=== PATIENT | female | born 1995 | race Caucasian/White ===

== ENCOUNTER 2020-06-20 16:42 | Emergency (ER) | payer OTHER ==
[~2020-06-20 16:42] MED LIST: MACROBID100 MG PO; SUDAFED30 MG PO; TESSALON PERLE100 M1 PO; ZYRTEC10 M3 PO
[2020-06-20 18:00] LABS: BILIRUBIN NEGATIVE (NEGATIVE); BLOOD TRACE-INTACT Ery/uL (NEGATIVE); CLARITY CLEAR (CLEAR); COLOR YELLOW (YELLOW); GLUCOSE (U) NORMAL (NORMAL); LEUKOCYTES NEGATIVE Leu/uL (NEGATIVE); NITRITE NEGATIVE (NEGATIVE); PROTEIN 1+ mg/dL (NEGATIVE); UROBILINOGEN 0.2 mg/dL (0.2-1.0); pH 6.5 (5.0-9.0)
[2020-06-20 18:10] LABS: URINARY RBC RARE
[2020-06-20 18:11] LABS: BACTERIA 1+
[2020-06-20 18:11] LABS: BASOPHIL 0.5 % (0-2); EOSINOPHIL 1.1 % (0-5); HCT 33.2 % (37.0-47.0); HGB 9.9 g/dl (12.5-16.0); MCH 22.4 pg (25.0-31.0); MCHC 29.8 g/dL (32.0-36.0); MCV 75.3 fL (78.0-100.0); MONOCYTE 6.9 % (0-12); MPV 8.5 fL (6.0-9.5); NEUTROPHIL 71.2 % (41-80); NRBC 0; PLT 392 K/uL (150-400); RBC 4.41 M/uL (4.20-5.40); RDW 15.7 % (11.5-14.0); WBC 9.9 K/uL (4.0-10.5)
[2020-06-20 18:32] LABS: BUN/CREAT RATIO (CALC) 24.3 RATIO; CREATININE 0.74 mg/dL (0.51-0.95); POTASSIUM 3.8 mmol/L (3.5-5.1)
[2020-06-23 21:09] LABS: CHLAMYDIA TRACHOMATIS, NAA Negative (Negative); NEISSERIA GONORRHOEAE, NAA Negative (Negative)
== END 2020-06-20 19:42 | disposition home or self-care (01) ==
LOC: FER 16:42
PROVIDERS: Nurse Practitioner Family
DX: O03.9 Complete or unspecified spontaneous abortion without complication (principal); I10 Essential (primary) hypertension
CPT/HCPCS: 36415; 80048; 81001; 84702; 85025; 87210; 87491; 87591; 99284

== ENCOUNTER 2021-09-13 10:49 | Emergency (ER) | payer OTHER ==
[2021-09-13 12:28] LABS: CORONAVIRUS 2019 SARS-COV-2 NEGATIVE (NEGATIVE); INFLUENZA A NAA NEGATIVE (NEGATIVE)
[2021-09-13] MEDS ORDERED: AMOXICILLIN500 MG PO (13:00)
== END 2021-09-13 15:13 | disposition home or self-care (01) ==
LOC: FER 10:49
PROVIDERS: Emergency Medicine
DX: J06.9 Acute upper respiratory infection, unspecified (principal); H72.91 Unspecified perforation of tympanic membrane, right ear; I10 Essential (primary) hypertension; Z20.822 Contact with and (suspected) exposure to COVID-19; Z28.310 Unvaccinated for COVID-19
CPT/HCPCS: 99283; U0002